=== PATIENT | female | born 1975 | race Hispanic/Latino ===

== ENCOUNTER 2019-08-31 08:30 | Emergency (ER) | payer MEDICAID ==
[2019-08-31] MEDS ORDERED: DiphenhydrAMINE HCL 50 MG/ML VIAL ONE (09:09)
[2019-08-31] MEDS ORDERED: SODIUM CHLORIDE 0.9% 1000ML 1,000 ML IV ONE (09:11)
[2019-08-31] MEDS ORDERED: METHYLPREDNISOLONE SOD SUCC 40MG/ML 1ML ONE (09:12)
[2019-08-31 09:13] LABS: BASOPHILS % (AUTO) 0.6 % (0.0-5.0); EOSINOPHILS % (AUTO) 6.2 % (0.0-8.0); HEMATOCRIT 36.4 % (36-48); LYMPHOCYTES % (AUTO) 25.8 % (21.0-51.0); MEAN CORPUSCULAR HEMOGLOBIN 25.3 pg (27.0-33.0); MEAN CORPUSCULAR HGB CONC 31.9 g/dL (32.0-36.0); MEAN CORPUSCULAR VOLUME 79.5 fL (79-99); MONOCYTES % (AUTO) 6.8 % (3.0-13.0); NEUTROPHILS % (AUTO) 60.1 % (40.0-77.0); PLATELET COUNT (AUTO) 338 K/uL (130-400); RED BLOOD CELL COUNT(AUTO) 4.58 MIL/uL (4.00-5.50); RED CELL DISTRIBUTION WIDTH 15.5 % (11.0-15.5); WHITE BLOOD COUNT (AUTO) 10.3 K/uL (4.8-10.8)
[2019-08-31 09:24] LABS: CREATININE 0.9 mg/dL (0.5-1.5); POTASSIUM 3.5 mmol/L (3.5-5.1)
[2019-08-31 09:29] LABS: ALBUMIN 3.5 g/dL (3.5-5.0); BILIRUBIN,TOTAL 0.4 mg/dL (0.2-1.0); TOTAL PROTEIN, SERUM 7.9 g/dL (6.0-8.3)
== END 2019-08-31 10:46 | disposition home or self-care (01) ==
LOC: EDH 08:30
DX: T78.40XA Allergy, unspecified, initial encounter (principal); L50.9 Urticaria, unspecified; X58.XXXA Exposure to other specified factors, initial encounter
CPT/HCPCS: 36415; 80053; 85025; 96374; 96375; 99284; J1200; J2920; J7030

== ENCOUNTER 2024-10-13 11:24 | Emergency (ER) | payer MEDICAID ==
[~2024-10-13] VITALS: Ht 172.7 cm; Wt 83.5 kg
[2024-10-13 11:25] VITALS: BP 117/71; PULSE 97; RESP 18; TEMP 98
--- NOTE | 2024-10-13 12:04 | ERN ---
General Chief Complaint: Ringing in Ears Stated Complaint: NOISE IN EAR Time Seen by MD: 11:32 Time Seen by Midlevel: 11:32 Source: patient History of Present Illness Initial Comments Patient is a 48-year-old female presenting to the emergency department with tinnitus to the right ear that started three days ago. The patient states she just woke up one morning and she had ringing in her ear. She specifically denies any recent travel specifically in an airplane, denies any recent swimming, denies any direct injury, denies any headache, nausea, vomiting, or vision changes. The patient has no other complaints other than the ringing in her right ear. Allergies: Coded Allergies: No Known Drug Allergies (Unverified Allergy, Unknown, 10/13/24) Past Medical History Past Medical History: No Pertinent History Past Surgical History: None ROS Dictation CONSTITUTIONAL: Negative except for HPI HEAD/FACE: Negative except for HPI EENT: Negative except for HPI RESPIRATORY: Negative except for HPI GASTROINTESTINAL/ABDOMINAL: Negative except for HPI GENITOURINARY: Negative except for HPI MUSCULOSKELETAL: Negative except for HPI INTEGUMENTARY: Negative except for HPI NEUROLOGICAL/PSYCH: Negative except for HPI HEMATOLOGIC/LYMPHATIC: Negative except for HPI All Systems Negative, Except as noted above. 13 point review of systems assessed and all negative except for above. Physical Exam Physical Exam Dictation Vital Signs reviewed General Appearance: Alert, oriented x 3, no acute distress, well developed, nourished. Head and Face: non-traumatic. Eyes: PERRL, pink conjunctivas, eyelid no trauma, anterior chamber with arcus senilis. Ears: Pinnas intact and no signs of trauma or erythema ear canals clear and no discharge TM no erythema Nose: No discharge, no bleeding. Oropharynx: Mouth normal, tongue pink, pharynx clear,no erythema, tonsils no exudates, no abscesses noted, mucous membrane moist Neck: Supple, non-tender, no thyromegaly, no masses, no JVD, no bruits Breast:Deferred Chest:No tenderness, no crepitus, no paradoxical movement, no retractions Lungs:Clear, well-ventilated, symmetric, no rales, no wheezing, no rhonchi, no stridor, good breath sounds bilaterally Heart: Regular rate, regular rhythm, no murmur, no gallops Vascular: no peripheral edema, Abdomen: Soft, positive bowel sounds, nondistended, no guarding, nontender, no rebound, no masses no hepatomegaly, no splenomegaly, no Núñez's sign, no hernias. Rectal: Deferred Genital: Deferred Neurological: Normal speech, motor function intact, sensory function intact Musculoskeletal: Neck nontender, full range of motion, back nontender, full range of motion, Extremities: nontender, full range of motion Skin: Color pink, dry, no turgor, no rash, no lacerations, no abrasions, no contusions. Lymphatic: Deferred MDM MDM: Patient is a 48-year-old female presenting to the emergency department with tinnitus to the right ear that started three days ago. The patient states she just woke up one morning and she had ringing in her ear. She specifically denies any recent travel specifically in an airplane, denies any recent swimming , denies any direct injury, denies any headache, nausea, vomiting, or vision changes. The patient has no other complaints other than the ringing in her right ear. On physical examination the patient is in no acute distress. She has a GCS of 15. Her neurological examination is unremarkable. No facial droop. Patient is ambulatory without assistance and with a normal gait. ENT examination is unremarkable. No evidence of cerumen impaction, otitis media, otitis externa. Given unremarkable physical examination the patient was advised to follow up with your primary care doctor for possible ENT referral. Patient has no neurological deficits and is stable for discharge. Differential diagnosis: Tinnitus, otitis media, otitis externa, barotrauma There are no social concerns with this patient. Prescription drug management Prescriptions will include: None Medical management and examination interpretation discussions were had by me with other qualified healthcare professionals as indicated for the patient's care. ED Course Vital Signs Date Time Temp Pulse Resp B/P (MAP) Pulse Ox O2 Delivery O2 Flow Rate FiO2 10/13/24 11:25 98.1 97 18 117/71 99 Room Air DX & DISP Disposition: Discharge Departure Impression: Primary Impression: Tinnitus, right Condition: Stable Referrals: JORGE EL MD (PCP) YASMIN CERVANTES III, MD Time of Disposition: 12:02 I have reviewed the case, and I agree with, Diagnosis and Plan I performed the substantive portion of the visit. I have reviewed and personally made and approve the management plan that is documented in the note by myself or the [place]. I acknowledge for responsibility for the patient's management plan. ARY BECKER October 13, 2024 12:04
== END 2024-10-13 12:40 | disposition home or self-care (01) ==
LOC: EDH 11:24
DX: H93.11 Tinnitus, right ear (principal)
CPT/HCPCS: 99281

== ENCOUNTER 2024-12-08 10:51 | Emergency (ER) | payer MEDICAID ==
[~2024-12-08] VITALS: Ht 172.7 cm; Wt 77.6 kg
--- NOTE | 2024-12-08 10:57 | ERN ---
ED Note History of Present Illness Stated Complaint: INSECT ON BILATERAL EARS Chief Complaint: Foreignbody Ear Time Seen by MD: 10:51 Dictation: 49-year-old female coming in for evaluation of feeling a foreign body sensation to both ears. Patient states she feels like it is crawling . Patient states she has been feeling like this intermittently for the last two days denies any hearing loss, fever, drainage or pain to the ears. Allergies: Coded Allergies: No Known Drug Allergies (Unverified Allergy, Unknown, 10/13/24) Past Medical History Past Medical History: Anemia Surgical History: Hysterectomy Review of System Dictation Constitutional: Negative for fever,chills, and weight loss Eyes: Negative for injury, pain,redness, and discharge ENT: Negative for injury,pain or swelling, feels foreign body in bilateral ears Cardiovascular: Negative for chest pain, palpitations, and edema Respiratory: Negative for shortness of breath, cough, and wheezing, Abdomen/GI: Negative for abdominal pain, nausea, vomiting, diarrhea, and constipation Back: Negative for injury and pain : Negative for injury, bleeding and discharge MS/Extremity: Negative for injury and deformity Skin: Negative for rash, and discoloration Neuro: Negative for headache, weakness, numbness, tingling, and seizure Psych: Negative for suicide ideation, homicidal ideation, and hallucinations Review of Systems: was completed Initial Vital Sign VS Vital Signs Date Time Temp Pulse Resp B/P (MAP) Pulse Ox O2 Delivery O2 Flow Rate FiO2 12/08/24 10:52 98.2 97 20 121/72 99 Room Air 0 Physical Exam Dictation General: awake, alert, NAD Head/Face: Normocephalic, atraumatic Eyes: PERRL, EOMI, vision at baseline ENT: oral cavity clear, TMs clear, no signs of infection, no foreign body in your, no serum Neck: Trachea midline, supple, no nuchal rigidity Cardiovascular: RRR, normal S1/S2, No MRGs, no JVD Respiratory: CTAB, no respiratory distress, No rales or wheezes Abdomen: Soft, non-tender, non-distended, normal bowel sounds, no guarding or rebound. Skin: Warm, dry, normal turgor, no rash MS/Extremity: Pulses equal, no cyanosis, neurovascular intact, FROM Neuro: COAx4, GCS 15, strength 5/5, CN 2-12 intact, normal cerebellar exam, normal gait, Psych: Normal behavior, mood, and affect normal ED Course ED Course Vital Signs Date Time Temp Pulse Resp B/P (MAP) Pulse Ox O2 Delivery O2 Flow Rate FiO2 12/08/24 10:52 98.2 97 20 121/72 99 Room Air 0 Medical Decision Making MDM MDM: 49-year-old female coming in for evaluation of feeling a foreign body sensation to both ears. Patient states she feels like it is crawling . Patient states she has been feeling like this intermittently for the last two days denies any hearing loss, fever, drainage or pain to the ears. On physical exam there is no foreign body in the ears. There is no serum impact, there is no signs of infection. Patient will be discharged to follow up outpatient. Differential diagnosis: Foreign body in ear, serum impact, otitis media, otitis externa Rationale: Tests considered and ordered secondary to shared decision making include: Previous outside records reviewed: Old ER visits. Risk of complication and/or morbidity or mortality of patient management: None Medications-Per medication reconciliation Need for hospitalization: Patient does not meet criteria for hospitalization. Need for emergency major/minor surgery: No There are no social concerns with this patient. Prescription drug management Prescriptions will include symptomatic care Patient's prior external medical records from other ER visits were reviewed by me as indicated. Prior testing and results from previous visits were reviewed. Prior tests were taken into account with medical decision making and resource utilization, independent historian/historians were used to obtain complete medical history. I independently interpreted the test that were performed, results were reviewed by me and considered findings on radiology if ordered. Medical management and examination interpretation discussions were had by me with other qualified healthcare professionals as indicated for the patient's care. DX & DISP Disposition: Discharge Departure Impression: Primary Impression: Well adult exam Condition: Stable Additional Instructions: Follow up with ENT. Referrals: JORGE EL MD (PCP) Time of Disposition: 10:57 I have reviewed the case, and I agree with FADUMO CRAFT NP Dec 08, 2024 10:57
[2024-12-08 11:14] VITALS: BP 120/70; PULSE 95; RESP 20; TEMP 98.1; O2SAT 98
--- NOTE | 2024-12-08 11:22 | NUR ---
unable to depart due to reg process
== END 2024-12-08 11:20 | disposition home or self-care (01) ==
LOC: EDH 10:51
DX: R09.A9 Foreign body sensation, other site (principal); Z90.710 Acquired absence of both cervix and uterus
CPT/HCPCS: 99282